=== PATIENT | female | born 1950 | race Caucasian/White ===

== ENCOUNTER 2018-10-10 15:25 | Outpatient (CLI) | END 2018-10-10 15:26 | disposition home or self-care (01) | LOC: RHC-LAB 15:25 → FCC-LAB 15:26 | PROVIDERS: ATTEND Family Medicine | DX: M79.10 Myalgia, unspecified site (principal); W57.XXXA Bitten or stung by nonvenomous insect and other nonvenomous arthropods, initial encounter | CPT/HCPCS: 36415; 80053; 85025; 86757; 87798 ==

== ENCOUNTER 2018-10-16 13:43 | Outpatient (CLI) | payer OTHER | END 2018-10-16 13:44 | disposition home or self-care (01) | LOC: RHC-LAB 13:43 → FCC-LAB 13:44 | PROVIDERS: ATTEND Family Medicine | DX: E87.6 Hypokalemia (principal); R53.1 Weakness; M25.50 Pain in unspecified joint | CPT/HCPCS: 36415; 80053; 82607; 83735; 85651; 86038 ==